=== PATIENT | female | born 1980 | race African-American/Black ===

== ENCOUNTER 2017-05-07 18:19 | Emergency (ER) | payer OTHER ==
[~2017-05-07] VITALS: Ht 162.6 cm; Wt 158.8 kg
[~2017-05-07 18:19] MED LIST: FIORICET 50-301 EACH PO; HYDROCODONE/ACE1 TA1 PO; PEPCID40 MG PO; TYLENOL EXTRA500 M2 PO; ZOFRAN ODT4 MG PO
--- NOTE | 2017-05-07 18:49 | ED AMS/SEIZURE/WEAK/DIZZY ---
History of Present Illness General Chief Complaint: Dizziness Stated Complaint: PT DIZZY,LIGTH HEADED Source: patient Exam Limitations: no limitations Vital Signs & Intake/Output Vital Signs & Intake/Output Vital Signs Date Time Temp Pulse Resp B/P B/P Pulse O2 O2 Flow FiO2 Mean Ox Delivery Rate 05/07 2147 98.7 99 18 175/90 96 Room Air 05/070 97.6 96 18 128/81 99 Room Air 05/07 1853 99 Room Air 05/07 1825 97.2 99 18 160/114 98 Room Air Room Air ED Intake and Output 05/08 0000 05/07 1200 Intake Total Output Total Balance Patient 350 lb Weight Weight Reported by Patient Measurement Method Allergies Coded Allergies: NO KNOWN ALLERGIES (03/11/16) Reconcile Medications Bupropion HCl (Bupropion XL) 150 MG TAB.ER.24H 1 TAB PO DAILY MENTAL HEALTH ( Reported) Ergocalciferol (Vitamin D2) (Vitamin D2) 50,000 UNIT CAPSULE 1 CAP PO QTHURS SUPPLEMENT (Reported) Hydrochlorothiazide 12.5 MG TABLET 1 TAB PO DAILY BP (Reported) Meclizine HCl 25 MG TABLET 1 TAB PO BID PRN DIZZINESS Triage Note: TRIAGE: 36 Y/O FEMALE PRESENTS C/O DIZZINESS, SENSATION SIMILAR TO PASSING OUT EARLIER TODAY. HISTORY OF HYPERTENSION - TAKES HTCZ - BP IN TRIAGE 160/114. Triage Nurses Notes Reviewed? yes Onset: Abrupt Duration: day(s): (3), constant, continues in ED, getting worse Timing: single episode today Severity: mild, moderate Severity Numbers: 6 No Modifying Factors: none Associated Symptoms: NAUSEA LMP (ages 10-50): unknown : No Patient currently breastfeeds: No HPI: 36-year-old female with a history of hypertension and depression presents complaining of dizziness for the past 3 days. Patient reports that symptoms started while she was at rest and have been occurring randomlY both at rest and with activity. Dizziness does get worse with any type of movement and improves a little bit with rest. However patient does report that dizziness does occur at rest as well. She reports an episode of near syncope earlier today This is associated with mild nausea but no vomiting. Additionally patient reports she has not been sleeping well over the past several weeks. She has not tried taking any medications for his symptoms. She currently denies any pain, fever, chest pain, shortness of breath. She does not use any drugs. No other associated symptoms. (DHIRAJ VENEGAS PA-C) Past History Travel History Traveled to [place] past 21 day No Medical History Any Pertinent Medical History? see below for history Neurological: NONE EENT: NONE Cardiovascular: hypertension Respiratory: NONE Gastrointestinal: NONE Hepatic: NONE Renal: NONE Musculoskeletal: meniscus tear Psychiatric: NONE Endocrine: NONE Blood Disorders: NONE Cancer(s): NONE H[employer]/Reproductive: NONE Surgical History Surgical History: right knee meniscus surgery Psychosocial History What is your primary language Yoruba Tobacco Use: Never used ETOH Use: denies use Illicit Drug Use: denies illicit drug use Family History Hx Contributory? No (DHIRAJ VENEGAS PA-C) Review of Systems Review of Systems Constitutional: Reports: no symptoms. EENTM: Reports: no symptoms. Respiratory: Reports: no symptoms. Cardiovascular: Reports: no symptoms. GI: Reports: no symptoms. Genitourinary: Reports: no symptoms. Musculoskeletal: Reports: no symptoms. Skin: Reports: no symptoms. Neurological/Psychological: Reports: other (dizziness). Hematologic/Endocrine: Reports: no symptoms. Immunologic/Allergic: Reports: no symptoms. All Other Systems: Reviewed and Negative (THEO MEJIA,DHIRAJ) Physical Exam Physical Exam General Appearance: well developed/nourished, no apparent distress, alert, awake , obese Head: atraumatic, normal appearance Eyes: Bilateral: normal appearance, PERRL, EOMI. Ears, Nose, Throat: normal pharynx, normal ENT inspection Neck: normal inspection, supple, full range of motion, no midline tenderness Respiratory: normal breath sounds, chest non-tender, no respiratory distress, lungs clear Cardiovascular: regular rate/rhythm, normal peripheral pulses Peripheral Pulses: 2+ dorsalis pedis (R), 2+ dorsalis pedis (L) Gastrointestinal: normal bowel sounds, soft, non-tender, no organomegaly Back: normal inspection, normal range of motion, no vertebral tenderness Extremities: normal range of motion Neurologic/Psych: no motor/sensory deficits, awake, alert, oriented x 3, normal gait, normal mood/affect Reflexes: 2+: knee (R), knee (L). Skin: intact, normal color, warm/dry Lymphatic: no anterior cervical marcelo Core Measures ACS in differential dx? No CVA/TIA Diagnosis: No Severe Sepsis Present: No Septic Shock Present: No (THEO MEJIA,DHIRAJ) Progress Differential Diagnosis: arrythmia, anemia, dehydration, electrolyte imbalance, hypoglycemia, labrynthitis, Meniere's disease, presyncope, bppv, MEDICATION SIDE EFFECT Plan of Care: Orders Procedure Date/time Status MISTAKE 05/07 1924 Active URINE 05/07 1924 Complete URINALYSIS 05/07 1924 Complete TROPONIN LEVEL 05/07 1924 Complete COMPREHENSIVE METABOLIC PANEL 05/07 1924 Complete CBC WITHOUT DIFFERENTIAL 05/07 1924 Complete EKG 05/07 1839 Active EKG 05/07 1828 Active Laboratory Tests 05/07/17 2030: Urine Color YEL, Urine Clarity CLEAR, Urine pH 7.0, Ur Specific [place] 1.015, Urine Protein NEG, Urine Ketones TRACE H, Urine Nitrite NEG, Urine Bilirubin NEG, Urine Urobilinogen 1.0, Ur Leukocyte Esterase NEG, Ur Microscopic EXAM NOT REQUIRED, Urine Hemoglobin NEG, Urine Glucose NEG, Urine Test NEGATIVE 05/07/171941: Anion Gap 12, Estimated GFR > 60, BUN/Creatinine Ratio 11.3, Glucose 90, Calcium 9.4, Total Bilirubin 0.5, AST 17, ALT 41, Alkaline Phosphatase 92, Troponin I < 0.01, Total Protein 7.8, Albumin 4.0, Globulin 3.8, Albumin/Globulin Ratio 1.1, CBC w Diff NO MAN DIFF REQ, RBC 4.00 L, MCV 84.4, MCH 27.3, RDW 15.5 H, MPV 7.7, Gran % 60.8, Lymphocytes % 30.0, Monocytes % 7.7, Eosinophils % 1.1, Basophils % 0.4, Absolute Granulocytes 3.9, Absolute Lymphocytes 1.9, Absolute Monocytes 0.5, Absolute Eosinophils 0.1, Absolute Basophils 0, PUBS MCHC 32.4 L 7:30 PM: Patient seen and evaluated. CT scan of the head, blood work and urine sent. Orthostatics ordered. Patient was given meclizine for symptomatically treatment. We will follow up on results of workup. 9:33 PM: Head CT is within normal limits. All labs are within normal limits other than hemoglobin of 10.9. pt advised to follow up with her PCP regarding this. Patient is feeling much better after meclizine. Reviewed all results with patient. Patient will be discharged home with meclizine to use every 12 hours. She'll follow-up with her primary care doctor or return to emergency department if any concerns. Patient is nontoxic appearing at discharge and again agrees with the plan. Case discussed with Dr. Silva and he agrees with the plan. (DHIRAJ VENEGAS PA-C) Initial ED EKG: SINUS TACH, LVH, BORDERLINE T WAVE ABNORMALITY INFERIOR LEADS Comments: PATIENT: MICHOACANO CAAL PRESENT AGE: 36 PATIENT ACCOUNT NO: [id number] : 79 LOCATION: [facility] ORDERING PHYSICIAN: DHIRAJ VENEGAS PA-C SERVICE DATE: 05/07/17 EXAM TYPE: CAT - CT HEAD WO IV CONTRAST EXAMINATION: CT HEAD WITHOUT CONTRAST CLINICAL INFORMATION: Dizziness and headaches. COMPARISON: CT brain 03/11/2016. TECHNIQUE: Contiguous axial imaging was performed from the skull base to vertex without intravenous administration of contrast. DLP: 698 mGy-cm FINDINGS: There is no evidence of acute intracranial hemorrhage or territorial infarction. No abnormal mass effect or midline shift is seen. Cesar to white matter differentiation is well preserved. No extra-axial fluid collections are identified. The ventricles are normal in size. There is no abnormal attenuation within the brain parenchyma. The osseous structures and soft tissues are normal. The mastoid air cells and visualized portions of the paranasal sinuses are well aerated. IMPRESSION: No acute intracranial process seen. (DHIRAJ VENEGAS PA-C) Departure Departure Disposition: HOME OR SELF CARE Condition: Stable Clinical Impression Primary Impression: Dizziness and giddiness Referrals: PATIENT HAS NO PRIMARY CARE DR Additional Instructions: Rest and drink plenty of fluids. Use meclizine 25 mg every 12 hours as needed for dizziness. This may cause drowsiness. Follow up with her primary care doctor this week to review all results. Return to the emergency department with any concerns. Please go over all results of today's visit with your primary care doctor. Contact your primary care doctor to let them know you were here in the emergency room. There may be nonspecific findings which may not be related to your visit today here in the emergency room but may require further evaluation and chronic monitoring by your primary care doctor. If you had a laceration today the chance of foreign body always remains. You should follow-up with your primary care doctor for recheck in 3-5 days for a wound check. If you had an x-ray done there is a chance that a fracture could have been missed on initial read and you should follow-up with your primary care doctor for repeat x-rays if symptoms persist. If your blood pressure was elevated here in the emergency room please have rechecked by her primary care doctor within the next 48 hours by your primary care doctor. If you were prescribed a narcotic here in the emergency room or any type of controlled substances you're not allowed to drive while taking this medication or operate any type of heavy machinery. Narcotics can make you feel lightheaded dizziness nausea and can cause constipation. You may need to picker packer a stool softener. Thank you for choosing [facility] emergency room. Please return to the emergency room immediately if you have any other concerns worsening of symptoms. Departure Forms: Customer Survey General Discharge Information Prescriptions: Current Visit Scripts Meclizine HCl 1 TAB PO BID PRN #30 TAB (THEO MEJIA,DHIRAJ) PA/[employer] Co-Sign Statement Statement: ED Attending supervision documentation- I saw and evaluated the patient. I have also reviewed all the pertinent lab results and diagnostic results. I agree with the findings and the plan of care as documented in the PA's/[employer]'s documentation. x I have reviewed the ED Record and agree with the PA's/[employer]'s documentation. [] Additions or exceptions (if any) to the PAs/[employer]'s note and plan are summarized below: [] (MIKAYLA ARCE,JOSE L)
[2017-05-07] MEDS ORDERED: VITAMIN D250000 UNIT PO (18:52)
[2017-05-07] MEDS ORDERED: BUPROPION XL150 MG PO (18:52)
[2017-05-07] MEDS ORDERED: HYDROCHLOROTH12.5 M2 PO (18:52)
[2017-05-07 19:57] LABS: ABSOLUTE BASOPHIL COUNT 0 /CUMM (0.0-0.2); ABSOLUTE EOSINOPHIL COUNT 0.1 /CUMM (0.0-0.7); ABSOLUTE GRANULOCYTE CT 3.9 /CUMM (1.4-6.5); ABSOLUTE LYMPH COUNT 1.9 /CUMM (1.2-3.4); ABSOLUTE MONOCYTE COUNT 0.5 /CUMM (0.10-0.60); BASOPHIL % 0.4 % (0.0-2.0); EOSINOPHIL % 1.1 % (0-5); GRANULOCYTE % 60.8 % (42.2-75.2); HEMATOCRIT 33.8 % (37-47); MEAN CORPUSCULAR HGB 27.3 PG (27.0-31.0); MEAN CORPUSCULAR HGB CONC 32.4 G/DL (33.0-37.0); MEAN CORPUSCULAR VOLUME 84.4 FL (81.0-99.0); MEAN PLATELET VOLUME 7.7 FL (7.4-10.4); PLATELET COUNT 386 /CUMM (130-400); RBC DISTRIBUTION WIDTH 15.5 % (11.5-14.5); WHITE BLOOD CELL COUNT 6.4 /CUMM (4.8-10.8)
--- NOTE | 2017-05-07 21:05 | CT SCAN REPORT ---
EXAMINATION: CT HEAD WITHOUT CONTRAST CLINICAL INFORMATION: Dizziness and headaches. COMPARISON: CT brain 03/11/2016. TECHNIQUE: Contiguous axial imaging was performed from the skull base to vertex without intravenous administration of contrast. DLP: 698 mGy-cm FINDINGS: There is no evidence of acute intracranial hemorrhage or territorial infarction. No abnormal mass effect or midline shift is seen. Cesar to white matter differentiation is well preserved. No extra-axial fluid collections are identified. The ventricles are normal in size. There is no abnormal attenuation within the brain parenchyma. The osseous structures and soft tissues are normal. The mastoid air cells and visualized portions of the paranasal sinuses are well aerated. IMPRESSION: No acute intracranial process seen.
[2017-05-07] MEDS ORDERED: MECLIZINE HCL25 MG PO (21:41)
[2017-05-07 21:47] VITALS: BP 175/90
== END 2017-05-07 21:58 ==
LOC: ERH 18:19
PROVIDERS: Physician Assistant Medical
DX: R42 Dizziness and giddiness (principal)
CPT/HCPCS: 81003; 81025; 93005; 93010